=== PATIENT | male | born 1990 | race Two or more races ===

== ENCOUNTER 2020-01-13 20:00 | Emergency (ER) | payer MEDICAID ==
[~2020-01-13] VITALS: Ht 175.3 cm; Wt 87.0 kg
[2020-01-13] MEDS ORDERED: ACETAMINOPHEN WITH CODEINE 300/30MG TABLET PO ONE (21:15)
[2020-01-13 22:39] VITALS: BP 110/69
== END 2020-01-13 22:43 | disposition home or self-care (01) ==
LOC: ER 20:11
DX: S62.336A Displaced fracture of neck of fifth metacarpal bone, right hand, initial encounter for closed fracture (principal); W20.8XXA Other cause of strike by thrown, projected or falling object, initial encounter; Y93.89 Activity, other specified; Y92.018 Other place in single-family (private) house as the place of occurrence of the external cause
CPT/HCPCS: 29125; 73130; 99283